=== PATIENT | male | born 1975 | race Caucasian/White ===

== ENCOUNTER → 2017-12-03 | Outpatient (CLI) | payer OTHER | LOC: MHCPAIN 12:36 | DX: G89.29 Other chronic pain (principal); M47.817 Spondylosis without myelopathy or radiculopathy, lumbosacral region; M53.3 Sacrococcygeal disorders, not elsewhere classified | CPT/HCPCS: G0463 ==

== ENCOUNTER → 2018-01-23 | Outpatient (CLI) | payer OTHER | LOC: MHCPAIN 10:08 | DX: M47.817 Spondylosis without myelopathy or radiculopathy, lumbosacral region (principal); M54.16 Radiculopathy, lumbar region | CPT/HCPCS: J1040; Q9967 ==

== ENCOUNTER → 2018-02-12 | Outpatient (CLI) | payer OTHER | LOC: MHCPAIN 13:15 | DX: G89.29 Other chronic pain (principal); M47.817 Spondylosis without myelopathy or radiculopathy, lumbosacral region; M54.16 Radiculopathy, lumbar region; M53.3 Sacrococcygeal disorders, not elsewhere classified | CPT/HCPCS: G0463 ==

== ENCOUNTER → 2018-02-27 | Outpatient (CLI) | payer OTHER | LOC: MHCPAIN 07:50 | DX: M47.817 Spondylosis without myelopathy or radiculopathy, lumbosacral region (principal); M54.16 Radiculopathy, lumbar region ==

== ENCOUNTER → 2018-03-04 | Outpatient (CLI) | payer OTHER | LOC: MHCPAIN 08:57 | DX: G89.29 Other chronic pain (principal); M47.817 Spondylosis without myelopathy or radiculopathy, lumbosacral region; M53.3 Sacrococcygeal disorders, not elsewhere classified | CPT/HCPCS: G0463 ==